=== PATIENT | female | born 1985 | race Two or more races ===

== ENCOUNTER 2017-10-06 13:57 | Inpatient (IN) | payer OTHER ==
[~2017-10-06] VITALS: Ht 160 cm; Wt 90.7 kg
[2017-10-06] MEDS ORDERED: ENOXAPARIN 40MG/0.4ML SYR SUBCUT ONE (14:45)
[2017-10-06 15:15] LABS: BASOPHILS % 0.3 % (0.0-2.0); EOSINOPHILS % 0.2 % (0.0-5.0); HEMATOCRIT. 37.8 % (36.0-48.0); HEMOGLOBIN. 12.4 g/dL (12.0-16.0); LYMPHOCYTES % 15.3 % (20.0-50.0); MEAN CORPUSCULAR HEMOGLOBIN 28.9 pg (28.0-32.0); MEAN PLATELET VOLUME 8.9 fl (7.4-10.4); MONOCYTES % 5.5 % (2.0-8.0); NEUTROPHILS % 78.7 % (40.0-76.0); PLATELET 265 x1000/uL (130-400); RED CELL DISTRIBUTION WIDTH 13.6 % (11.6-14.6)
[2017-10-06 15:15] LABS: BG BASE EXCESS -6.9 mmol/L (-2.0-2.0); BG CARBOXYHEMOGLOBIN 0.3 % (0.5-1.5); BG DEOXYHEMOGLOBIN 0.9 % (0.0-5.0); BG FRACTION INSPIRED OXYGEN 60; BG HCO3 ACT 16.9 mmol/L (22.0-26.0); BG METHEMOGLOBIN 0.3 % (0.0-1.5); BG OXYGEN SATURATION 99.1 % (92.0-98.5); BG OXYHEMOGLOBIN 98.5 % (94.0-97.0); BG PCO2 29.1 mmHg (35.0-45.0); BG PH 7.382 (7.350-7.450); BG PO2 227.3 mmHg (75.0-100.0); BG SAMPLE SITE LEFT BRACHIAL; BG TOTAL HEMOGLOBIN 12.3 g/dL (12.0-18.0); BG VENT MODE MASK - NRB
[2017-10-06 15:27] LABS: AMMONIA < 25 uMol/L (<32)
[2017-10-06 15:30] LABS: D-DIMER 29.67 mg/L FEU (<0.50); INR 1.1; PROTHROMBIN TIME 11.4 sec (9.4-11.6)
[2017-10-06 15:32] LABS: CARBON DIOXIDE 24 mEq/L (21-32); CHLORIDE 102 mEq/L (98-107)
[2017-10-06 15:33] LABS: TROPONIN I 0.67 ng/mL (0.00-0.04)
[2017-10-06] MEDS ORDERED: ALTEPLASE 100MG/VIAL IV ONE (16:45)
[2017-10-06] MEDS ORDERED: IOHEXOL-350 100 ML BOTTLE ONE (16:51)
[2017-10-06] MEDS ORDERED: ALTEPLASE 100 MG in BAG 1 EACH IV NR (17:00)
[2017-10-06] MEDS ORDERED: HEPARIN 25,000 UNITS PREMIX 500 ML IV SCH ×3 (18:00→23:15)
[2017-10-06 19:46] LABS: CLARITY URINE CLEAR (CLEAR); COLOR URINE YELLOW (YELLOW); KETONES URINE NEGATIVE (NEGATIVE); LEUKOCYTE ESTERASE URINE NEGATIVE (NEGATIVE); NITRITE URINE NEGATIVE (NEGATIVE); OCCULT BLOOD URINE TRACE (NEGATIVE); PH URINE 5.5 (4.5-8.0); PROTEIN URINE 1+ (NEGATIVE); SPECIFIC GRAVITY URINE 1.051 (1.005-1.030); UROBILINOGEN URINE 0.2 E.U./dL (0.2-1.0)
[2017-10-06 20:36] LABS: *AMPHETAMINES SCREEN URINE NEGATIVE (NEGATIVE); *BARBITURATES SCREEN URINE NEGATIVE (NEGATIVE); *BENZODIAZEPINES SCREEN URINE NEGATIVE (NEGATIVE); *COCAINE SCREEN URINE NEGATIVE (NEGATIVE); METHADONE URINE SCREEN NEGATIVE (NEGATIVE); OPIATES URINE SCREEN NEGATIVE (NEGATIVE); PHENCYCLIDINE URINE SCREEN NEGATIVE (NEGATIVE)
[2017-10-06 20:37] LABS: CANNABINOID URINE SCREEN PRESUMTIVE POSITIVE (NEGATIVE)
[2017-10-06] MEDS ORDERED: HEPARIN BOLUS PRN aPTT <36 IV (21:45)
[2017-10-06] MEDS ORDERED: HEPARIN BOLUS PRN aPTT 37-44 IV (21:45)
[2017-10-06] MEDS ORDERED: SODIUM CHLORIDE 0.9% 1,000 ML IV ONE (22:45)
[2017-10-06 23:00] VITALS: BP 132/88
[2017-10-07] VITALS (14 sets, daily range): BP systolic 55–144; BP diastolic 39–92
[2017-10-07] MEDS: SODIUM CHLORIDE 0.9% 1,000 ML IV SCH ×2 (00:09→20:09)
[2017-10-07] MEDS ORDERED: ONDANSETRON HCL 4MG/2ML VIAL IV PRN (00:15)
[2017-10-07] MEDS ORDERED: LORAZEPAM 0.5MG TABLET PO PRN (00:15)
[2017-10-07] MEDS ORDERED: DOCUSATE SODIUM 100MG CAPSULE PO PRN (00:15)
[2017-10-07] MEDS ORDERED: ACETAMINOPHEN 325MG TABLET PO PRN (00:15)
[2017-10-07] MEDS ORDERED: IPRATROPIUM/ALBUTEROL 0.5-3(2.5)MG/3ML NEB INH PRN (00:15)
[2017-10-07 06:29] LABS: BASOPHILS % 0.7 % (0.0-2.0); EOSINOPHILS % 0.3 % (0.0-5.0); HEMOGLOBIN. 11.1 g/dL (12.0-16.0); LYMPHOCYTES % 43.7 % (20.0-50.0); MEAN CORPUSCULAR HEMOGLOBIN 29.9 pg (28.0-32.0); MEAN CORPUSCULAR VOLUME 86.6 fL (81.0-99.0); MEAN PLATELET VOLUME 9.2 fl (7.4-10.4); MONOCYTES % 12.9 % (2.0-8.0); NEUTROPHILS % 42.4 % (40.0-76.0); PLATELET 221 x1000/uL (130-400); RED CELL DISTRIBUTION WIDTH 13.2 % (11.6-14.6)
[2017-10-07 06:37] LABS: INR 2.6; PROTHROMBIN TIME 27.5 sec (9.4-11.6)
[2017-10-07 06:47] LABS: CHLORIDE 109 mEq/L (98-107)
[2017-10-07 07:03] LABS: CARBON DIOXIDE 22 mEq/L (21-32)
[2017-10-07] MEDS ORDERED: POTASSIUM CHLORIDE 20MEQ TABLET SR PO SCH (09:00)
[2017-10-07] MEDS ORDERED: ENOXAPARIN 80MG/0.8ML SYR SUBCUT SCH ×2 (09:00→21:00)
[2017-10-07 14:34] LABS: INR 1.4; PROTHROMBIN TIME 14.6 sec (9.4-11.6)
== END 2017-10-07 22:53 | disposition short-term general hospital (02) | DRG 175 ==
LOC: ER 14:11 → 3WST 19:04 → ENRESERV 20:02
PROVIDERS: ADMIT Internal Medicine Geriatric Medicine; ATTEND Internal Medicine Geriatric Medicine
DX: I26.92 Saddle embolus of pulmonary artery without acute cor pulmonale (principal); J96.01 Acute respiratory failure with hypoxia; D68.59 Other primary thrombophilia; E11.21 Type 2 diabetes mellitus with diabetic nephropathy; E11.65 Type 2 diabetes mellitus with hyperglycemia; E66.01 Morbid (severe) obesity due to excess calories; E87.1 Hypo-osmolality and hyponatremia; D64.9 Anemia, unspecified; E86.0 Dehydration; E87.6 Hypokalemia; F12.10 Cannabis abuse, uncomplicated; I25.9 Chronic ischemic heart disease, unspecified; Z68.35 Body mass index [BMI] 35.0-35.9, adult
CPT/HCPCS: 36415; 36556; 36600; 51702; 71275; 80048; 80053; 80305; 81001; 81025; 82140; 82375; 82805; 83036; 83880; 84443; 84484; 85025; 85379; 85610; 85730; 87040; 87086; 93005; 93970; 96372; 99291; J1644; J1650; J2997; J7030; Q9967